=== PATIENT | male | born 1945 | race Caucasian/White ===

== ENCOUNTER 2024-06-29 11:10 | Day surgery (SDC) | payer MEDICARE, SELFPAY ==
[2024-06-25 14:45] VITALS: BMI 27.1
[2024-06-29] VITALS (14 sets, daily range): BP systolic 125–162; BP diastolic 82–108; PULSE 62–90; RESP 12–26; TEMP 36.2–36.6; O2SAT 94–99; BMI 27.1
[2024-06-29] MEDS: Ampicillin Inj 2,000 MG in SODIUM CHLORIDE 0.9% (P) 100 ML 100 MG IV (12:15)
[2024-06-29] MEDS: SODIUM CHLORIDE 0.9% 500 ML 500 ML 20 ML IV (12:50)
[2024-06-29] MEDS: DiphenhydrAMINE INJ 50 MG/ML VIAL 25 MG IV (12:54)
[2024-06-29] MEDS: ONDANSETRON INJ 2 MG/ML INJ 2 ML 4 MG IV (13:07)
[2024-06-29] MEDS: fentaNYL CIT INJ 50 mCg/ML AMP 2ML (ASD USE ONLY) IV (13:09)
[2024-06-29] MEDS: MIDAZOLAM INJ 1 MG/ML VIAL 2 ML (ASD USE ONLY) 2 MG IV (13:09)
--- NOTE | 2024-06-29 15:05 | SUR.PHASEII ---
1345: Pt received for recovery. Report from Brittany FARLEY. Pt groggy. Easily aroused. Resp even, unlabored. VS stable. No c/o pain. 1415: Pt more awake, alert. Sitting up tolerating po fluids with no difficulty swallowing and no n/v. 1441: Pt fully awake, oriented x3. Pt was assisted to restroom. Ambulation steady. Pt passing large amounts of flatus. Pt dressed and in transport chair. Stated abdominal pressure he was feeling subsiding. Denies pain. Pt and stated understanding of discharge instructions. Pt discharged from [facility] in stable condition.
== END 2024-06-29 14:41 | disposition home or self-care (01) ==
PROVIDERS: PCP Internal Medicine Hospice and Palliative Medicine; Referring Provider Specialist; Visit Provider Specialist
PROC: 0DBE8ZX Excision of Large Intestine, Via Natural or Artificial Opening Endoscopic, Diagnostic (ICD-10-PCS; CPT 45380; principal; 2024-06-29 11:45)
PROC: (CPT 43239; 2024-06-29 11:45)
DX: D12.3 Benign neoplasm of transverse colon (principal); Z87.19 Personal history of other diseases of the digestive system; Z01.818 Encounter for other preprocedural examination; D12.4 Benign neoplasm of descending colon; D12.5 Benign neoplasm of sigmoid colon; K64.9 Unspecified hemorrhoids; Z98.84 Bariatric surgery status
CPT/HCPCS: 45385; 43235; A4649; J0290; J1200; J1580; J2250; J2405; J3010; J7040; J7050